=== PATIENT | female | born 2000 | race Caucasian/White ===

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

== ENCOUNTER 2022-02-09 21:52 | Emergency (ER) | payer OTHER, SELFPAY ==
--- NOTE | ~2022-02-09 | US_ITS ---
US OB <=14 wk fetus w TV DATE: 02/10/2022 04:47 INDICATION: Left lower quadrant abdominal pain. Elevated beta hCG. TECHNIQUE: Real-time imaging via transabdominal and transvaginal approaches COMPARISON: None FINDINGS: The uterus measures 9.4 cm height, 7 x 5 cm AP dimension. A normal appearing intrauterine g estational sac is identified. pole and yolk sac are detected. heart rate of 139 bpm. Rector-rump length measures 1.28 cm, consistent with 7 weeks 3 days +/- 5 days estimated gestational a ge; TELMA:. The ovaries appear normal, with vascular flow. Small amount of free fluid in the retrouterine area. IMPRESSION: Early intrauterine gestation, estimated gestational age of 7 weeks 3 days +/- 5 days Reviewed, dictated and finalized at [facility] Reviewed, dictated and finalized at [facility].
[2022-02-09 21:56] VITALS: BP 132/105; PULSE 94; RESP 18; TEMP 36.4; O2SAT 98
[2022-02-09 22:16] LABS: Basophils Absolute Auto 0.1 K/mm3 (0.0-0.1); Basophils Percent Auto 0.6 % (0.2-1.2); Eosinophils Absolute Auto 0.3 K/mm3 (0-0.3); Eosinophils Percent Auto 2.3 % (0-4.4); Hematocrit 33.8 % (37.0-47.0); Hemoglobin 10.2 g/dL (12.0-15.0); Immature Granulocyte Absolute 0.03 K/mm3 (0.00-0.031); Immature Granulocyte Percent A 0.3 % (0-0.5); Lymphocytes Absolute Auto 2.18 K/mm3 (0.9-3.2); Lymphocytes Percent Auto 19.7 % (18.3-44.2); Mean Corpuscular HGB Conc 30.2 g/dl (32-36); Mean Corpuscular Hemoglobin 21.6 pg (26-34); Mean Corpuscular Volume 71.5 fl (80-100); Mean Platelet Volume 10.6 fl (7.4-10.4); Monocytes Absolute Auto 0.8 K/mm3 (0.1-0.6); Monocytes Percent Auto 7.3 % (2.6-8.5); Neutrophils Absolute Auto 7.7 K/mm3 (1.3-6.7); Neutrophils Percent Auto 69.8 % (45.5-73.1); Platelet Count Result 310 k/mm3 (150-375); Red Blood Count 4.73 M/mm3 (4.2-5.4); Red Cell Distribution Width 19.2 % (11.5-14.5); White Blood Count 11.1 K/mm3 (4.5-10.0)
[2022-02-09 22:27] LABS: Alanine Aminotransferase 14 U/L (6-35); Albumin Level 5.4 g/dL (3.7-5.6); Alkaline Phosphatase 46 U/L (45-116); Anion Gap 18 mmol/L (8-16); Aspartate Amino Transferase 19 U/L (14-36); Bilirubin,Total 0.4 mg/dL (0.2-1.3); Blood Urea Nitrogen 5 mg/dL (8-21); Carbon Dioxide 22 mmol/L (22-30); Chloride 100 mmol/L (98-107); Estimated CRCL calculation 91 ml/min; Estimated Glomerular Filt Rate > 60; Glucose 80 mg/dL (65-110); Lipase 54 U/L (23-300); Potassium 3.5 mmol/L (3.4-5.0); Sodium 140 mmol/L (134-143)
[2022-02-09 22:40] LABS: Microcytosis 1+ (NORMAL); Platelet Estimate Adequate (Adequate)
[2022-02-09 22:41] LABS: Hypochromasia 1+ (NORMAL)
[2022-02-10 01:03] VITALS: BP 109/79; O2SAT 100
--- NOTE | 2022-02-10 01:03 | ED.ABDPAIN ---
HPI - Abdominal Pain General Chief Complaint: Abdominal Pain <BEVERLY Amor Last Filed: 02/10/22 04:05> Stated Complaint: abdominal pain <BEVERLY Amor Last Filed: 02/10/22 04:05> Time Seen by Provider: 02/10/22 01:00 <Bobbi Brooks PA-C - Last Filed: 02/10/22 04:05> Source: patient and old records reviewed <BEVERLY Amor Last Filed: 02/10/22 04:05> Mode of arrival: ambulatory <BEVERLY Amor Last Filed: 02/10/22 04:05> Limitations: no limitations <BEVERLY Amor Last Filed: 02/10/22 04:05> History of Present Illness HPI narrative: Patient is a 21-year-old female who presents to the ED with report of lower abdomen and lower back pain. Patient reports having intermittent pain in her lower abdomen and back over the last several months since having her child 6 months ago. Pain is described as sharp and stabbing. Worse over the last week, which prompted her presentation. She has been taking Tylenol at home without much relief. Reports occasional nausea, but denies vomiting, constipation, diarrhea, urinary symptoms, fever, abnormal vaginal bleeding, cough or cold symptoms. Patient reports having positive home test 2 weeks ago. She does note history of retained POC at recent . She had what sounds like a D&C at that time and later became significantly anemic, requiring several blood transfusions. She has since seen Dr. Vidya Silva with [facility]. She she has had positive tests since then and was told it was due to retained placental fragments. <BEVERLY Amor Last Filed: 02/10/22 04:05> Related Data Allergies/Adverse Reactions: Allergies Allergy/AdvReac Type Severity Reaction Status Date / Time No Known Allergies Allergy Unverified 02/28/15 21:53 <BEVERLY Amor Last Filed: 02/10/22 04:05> Review of Systems Review of Systems: CONSTITUTIONAL: Denies fever, chills, or sweats. ENT: Denies rhinorrhea, congestion, sore throat. CARDIOVASCULAR: Denies chest pain. RESPIRATORY: Denies cough or dyspnea. GASTROINTESTINAL: Reports lower abdominal pain, nausea. Denies vomiting, constipation, or diarrhea. GENITOURINARY: Denies AUB, dysuria, or hematuria. MUSCULOSKELETAL: Reports lower back pain. <Bobbi Brooks PA-C - Last Filed: 02/10/22 04:05> All systems reviewed & are unremarkable except as noted in HPI and below <Bobbi Brooks PA-C - Last Filed: 02/10/22 04:05> [facility] Past Medical History Medical History: Medical History (Updated 02/10/22 @ 06:11 by Venancio Singer MD) History of blood transfusion No pertinent past medical history <Bobbi Brooks PA-C - Last Filed: 02/10/22 04:05> Surgical History Surgical History: Surgical History (Updated 02/10/22 @ 01:17 by Bobbi Brooks PA-C) History of D&C <Bobbi Brooks PA-C - Last Filed: 02/10/22 04:05> Social History Social History: Social History (Updated 02/10/22 @ 01:17 by Bobbi Brooks PA-C) Smoking status: Current every day smoker <Bobbi Brooks PA-C - Last Filed: 02/10/22 04:05> Exam Narrative: GENERAL: Well appearing, thin, non-toxic, in no acute distress. HEAD: Normocephalic, atraumatic. NECK: Supple. No adenopathy, no masses. RESPIRATORY: Airway patent, respirations nonlabored. Clear to auscultation bilaterally, no rales, rhonchi, wheezing. CARDIOVASCULAR: Regular rate and rhythm without murmurs, rubs, or gallops. Peripheral pulses 2+ and equal bilaterally. ABDOMINAL: Soft, mild tenderness to palpation in left lower quadrant, epigastric region. Nondistended, no hepatosplenomegaly. Normoactive BS. MUSCULOSKELETAL: Moves all extremities. Strength/ROM intact without gross deformities. TTP in lumbar region bilaterally. No midline spinal tenderness. SKIN: Warm, dry, normal color. No rashes. NEURO: A&O X3. Speech clear. Crani
[2022-02-10 01:23] LABS: Appearance Urine Clear (Clear); Bilirubin Urine Negative (Negative); Blood Urine Negative (Negative); Color Urine Yellow (Yellow); Glucose Urine UA Negative (Negative); Ketones Urine Negative (Negative); Leukocyte Esterase Ur Trace LEU/UL (Negative); Nitrate Urine Negative (Negative); Protein Urine Negative (Negative); Urobilinogen Urine 0.2 mg/dL (<2.0)
[2022-02-10 01:26] LABS: Add Urine Microscopic? YES; Bacteria Urine Trace /hpf; Mucus Urine Rare /lpf; RBC Urine 0-2 /hpf (0-2); Squamous Epithelial Cell Urine Rare /hpf (Few)
[2022-02-10 02:09] VITALS: BP 110/68; PULSE 68; RESP 16; TEMP 36.3; O2SAT 100
[2022-02-10] MEDS: SODIUM CHLORIDE 0.9% IV 1,000 ML 999 ML IV CONT (02:10)
--- NOTE | 2022-02-10 03:40 | PC.NURSE ---
Pt in is US at this time
--- NOTE | 2022-02-10 04:19 | PC.NURSE ---
pt in US at this time
[2022-02-10 04:40] VITALS: BP 97/54; PULSE 57; RESP 18; O2SAT 100
[2022-02-10 05:59] VITALS: BP 79/47; PULSE 60; RESP 18; O2SAT 100
== END 2022-02-10 06:30 | disposition home or self-care (01) ==
PROVIDERS: Emergency Medicine; Physician Assistant; Emergency Provider Emergency Medicine; PCP Family Medicine
DX: O26.891 Other specified pregnancy related conditions, first trimester (principal); R10.30 Lower abdominal pain, unspecified; Z3A.01 Less than 8 weeks gestation of pregnancy
CPT/HCPCS: 36415; 76801; 76817; 80053; 81001; 81025; 83690; 84702; 85025; 87086; 96374; 99284; J0131; J7030

== ENCOUNTER 2022-12-01 15:36 | Emergency (ER) | payer OTHER, SELFPAY ==
--- NOTE | ~2022-12-01 | US_ITS ---
EXAMINATION: US OB follow up DATE: 12/01/2022 19:08 INDICATION: One week of pelvic and back pain during early second trimester TECHNIQUE: Real-time ultrasound of the pelvis was performed. The interpreting radiologist was not pre sent for the study. COMPARISON: None. FINDINGS: There is a single living fetus in breech presentation. The placenta is anterior. heart rate is 146 beats per minute (bpm). The amniotic fluid volume is subjectively normal. The following biometric data were obtained: BPD: 8.7 cm -> 14 weeks 6 days Head circumference: 10.5 cm -> 15 weeks 0 days Abdominal circumference: 9.0 cm -> 15 weeks 1 days Femur length: 1.5 cm -> 14 weeks 2 days These measurements are concordant. Head circumference to abdominal circumference ratio: 1.18 (normal range 1.06-1.38). Estimated weight: 106 g (+/-) 16 g or 4 oz. (+/-) <1 oz. IMPRESSION: 1. Single living fetus in breech presentation with heart rate of 146 bpm. 2. Gestational age by ultrasound of 14 weeks 6 day(s) +/- 1 week(s) 0 day(s) with ultrasound estimate d date of delivery (TELMA) of 05/26/2023. Estimated weight is 71st percentile by Hadlock criteria when 05/30/2023 is used as the TELMA. Please correlate with clinical information or earlier ultrasound s for most accurate TELMA. Reviewed, dictated and finalized at [facility]. IMPRESSION: 1. Single living fetus in breech presentation with heart rate of 146 bpm. 2. Gestational age by ultrasound of 14 weeks 6 day(s) +/- 1 week(s) 0 day(s) wi th ultrasound estimated date of delivery (TELMA) of 05/26/2023. Estimated w eight is 71st percentile by Hadlock criteria when 05/30/2023 is used as the TELMA . Please correlate with clinical information or earlier ultrasounds for most ac curate TELMA.
[2022-12-01 15:39] VITALS: BP 121/66; PULSE 100; RESP 17; TEMP 36.9; O2SAT 100
[2022-12-01 16:51] LABS: Basophils Percent Auto 0.3 % (0.2-1.2); Eosinophils Absolute Auto 0.1 K/mm3 (0-0.3); Eosinophils Percent Auto 0.8 % (0-4.4); Hemoglobin 9.1 g/dL (12.0-15.0); Immature Granulocyte Absolute 0.04 K/mm3 (0.00-0.031); Immature Granulocyte Percent A 0.3 % (0-0.5); Lymphocytes Absolute Auto 1.75 K/mm3 (0.9-3.2); Lymphocytes Percent Auto 14.8 % (18.3-44.2); Mean Corpuscular HGB Conc 30.3 g/dl (32-36); Mean Corpuscular Volume 79.2 fl (80-100); Mean Platelet Volume 10.4 fl (7.4-10.4); Monocytes Absolute Auto 0.7 K/mm3 (0.1-0.6); Monocytes Percent Auto 6.2 % (2.6-8.5); Neutrophils Absolute Auto 9.2 K/mm3 (1.3-6.7); Neutrophils Percent Auto 77.6 % (45.5-73.1); Platelet Count Result 234 k/mm3 (150-375); Red Blood Count 3.79 M/mm3 (4.2-5.4); Red Cell Distribution Width 17.4 % (11.5-14.5); White Blood Count 11.9 K/mm3 (4.5-10.0)
[2022-12-01 17:03] LABS: Alanine Aminotransferase 13 U/L (6-35); Alkaline Phosphatase 49 U/L (38-126); Anion Gap 7 mmol/L (8-16); Aspartate Amino Transferase 20 U/L (14-36); Bilirubin,Total 0.3 mg/dL (0.2-1.3); Blood Urea Nitrogen 7 mg/dL (7-17); Calcium 8.4 mg/dL (8.4-10.2); Carbon Dioxide 26 mmol/L (22-30); Chloride 102 mmol/L (98-107); Estimated Glomerular Filt Rate > 60; Glucose 86 mg/dL (65-110); Lipase 62 U/L (23-300); Potassium 3.5 mmol/L (3.4-5.0); Sodium 135 mmol/L (137-145)
[2022-12-01 17:13] LABS: Appearance Urine Clear (Clear); Bacteria Urine None Seen /hpf; Bilirubin Urine Negative (Negative); Blood Urine Negative (Negative); Color Urine Yellow (Yellow); Glucose Urine UA Negative (Negative); Ketones Urine Negative (Negative); Leukocyte Esterase Ur Trace LEU/UL (Negative); Nitrate Urine Negative (Negative); Non Pathogenic Casts 0-2; Protein Urine Negative (Negative); RBC Urine 0-2 /hpf (0-2); Specific Grav Ur 1.019 (1.001-1.035); Squamous Epithelial Cell Urine Few /hpf (Few); Urobilinogen Urine 0.2 mg/dL (<2.0)
[2022-12-01 17:23] LABS: Add Urine Microscopic? YES
--- NOTE | 2022-12-01 17:37 | PC.NURSE ---
[employer] called in
--- NOTE | 2022-12-01 17:41 | ED.ABDPAIN ---
HPI - Abdominal Pain General Chief Complaint: Abdominal Pain <Carmen Urbina PA-C - Last Filed: 12/01/22 20:58> Stated Complaint: lower back/abd pain - 14 weeks - no bleed <Carmen Urbina PA-C - Last Filed: 12/01/22 20:58> Time Seen by Provider: 12/01/22 17:16 <BEVERLY Fallon Last Filed: 12/01/22 20:58> Source: patient <BEVERLY Fallon Last Filed: 12/01/22 20:58> Mode of arrival: ambulatory <BEVERLY Fallon Last Filed: 12/01/22 20:58> Limitations: no limitations <BEVERLY Fallon Last Filed: 12/01/22 20:58> History of Present Illness HPI narrative: This is a 22-year-old , about 14 weeks , that presents to the emergency department for pelvic pain ongoing over the last week. Reports the pain is sharp and constant. Reports it feels like labor pains. She also experiences this pain in her lower back. She has had some nausea and vomiting. Reports her OB is Dr. Silva. She has not tried to take anything for pain. Denies fevers, dysuria, hematuria, or vaginal bleeding. <Carmen Urbina PA-C - Last Filed: 12/01/22 20:58> Related Data Allergies/Adverse Reactions: Allergies Allergy/AdvReac Type Severity Reaction Status Date / Time No Known Allergies Allergy Unverified 12/01/22 15:37 <Carmen Urbina PA-C - Last Filed: 12/01/22 20:58> Review of Systems Review of Systems: CONSTITUTIONAL: Denies fever GASTROINTESTINAL: Reports abdominal pain, nausea, vomiting. Denies diarrhea. GENITOURINARY: Denies dysuria or hematuria. MUSCULOSKELETAL: Reports back pain <BEVERLY Fallon Last Filed: 12/01/22 20:58> All systems reviewed & are unremarkable except as noted in HPI and below <BEVERLY Fallon Last Filed: 12/01/22 20:58> PMFSH Past Medical History Medical History: Medical History (Updated 12/02/22 @ 00:00 by Tianna Marilynn) History of anemia History of blood transfusion <Carmen Urbina PA-C - Last Filed: 12/01/22 20:58> Surgical History Surgical History: Surgical History (Updated 02/10/22 @ 01:17 by Bobbi Brooks PA-C) History of D&C <Carmen Urbina PA-C - Last Filed: 12/01/22 20:58> Social History Social History: Social History (Updated 12/01/22 @ 17:44 by Carmen Urbina PA-C) Smoking status: Current every day smoker Tobacco type: e-cigarettes/vaping Substance use: current Substance use type: marijuana <Carmen Urbina PA-C - Last Filed: 12/01/22 20:58> Exam Narrative: GENERAL: Well-appearing, well-nourished, and in no acute distress. HEAD: Normocephalic, atraumatic. EYES: EOMI. ENT: Mucous membranes moist. Oropharynx without tonsillar hypertrophy exudate or other lesions. CHEST: Clear to auscultation. No respiratory distress. No wheezes rales or rhonchi HEART: Regular rate and rhythm. No murmur heard. Normal peripheral pulses. ABDOMEN: Soft, nontender, nondistended, normal active bowel sounds. EXTREMITIES: Normal range of motion. No edema. SKIN: Warm, dry, no rash. NEURO: No focal deficits. Alert and oriented x3. PSYCH: Normal mood and affect <Carmen Urbina PA-C - Last Filed: 12/01/22 20:58> Course Course Emergency Course: Patient and family updated on work-up. Patient is resting comfortably and agrees with plan of care <Carmen Urbina PA-C - Last Filed: 12/01/22 20:58> GROUND INSTRUCTOR BASIC/PA Physician Supervision This is a was performed by both a physician and an APC. I performed all aspects of the MDM as documented w/ the following additions: 22-year-old 14 weeks gestation presenting with pelvic cramping in . Ultrasound showed a live intrauterine breech position. Patient be discharged with return precautions. All questions answered. Patient in agreement w/ disposition. <Mikael Rodriguez MD - Last Filed: 12/03/22 19:56> Vital Signs Vital signs: Vital Signs Temperature 98.4 F 12/01/22 15:39 Pulse R
[2022-12-01] MEDS: ONDANSETRON INJ 4 MG/2 ML VIAL IV PUSH (18:16)
[2022-12-01] MEDS: SODIUM CHLORIDE 0.9% IV 500 ML 999 ML IV CONT (18:16)
[2022-12-01 19:10] VITALS: BP 114/71; PULSE 92; RESP 18; O2SAT 99
[2022-12-01] MEDS: ACETAMINOPHEN 500 MG TABLET 1000 MG PO (20:07)
[2022-12-01 21:00] VITALS: BP 105/71; PULSE 68; RESP 16; O2SAT 99
== END 2022-12-01 21:14 | disposition home or self-care (01) ==
PROVIDERS: Emergency Medicine; Emergency Provider Physician Assistant; PCP Family Medicine
DX: O26.892 Other specified pregnancy related conditions, second trimester (principal); R10.2 Pelvic and perineal pain; O99.012 Anemia complicating pregnancy, second trimester; D64.9 Anemia, unspecified; O99.332 Smoking (tobacco) complicating pregnancy, second trimester; F17.290 Nicotine dependence, other tobacco product, uncomplicated; Z3A.14 14 weeks gestation of pregnancy
CPT/HCPCS: 36415; 76816; 80053; 81001; 83690; 84702; 85025; 87086; 87088; 96361; 96374; 99284; A9270; J2405; J7040

== ENCOUNTER 2023-03-27 14:25 | Outpatient (CLI) | payer OTHER, SELFPAY ==
[2023-03-27] VITALS (19 sets, daily range): BP systolic 93–115; BP diastolic 42–64; PULSE 58–143; O2SAT 90–100
[2023-03-27] MEDS: IRON SUCROSE COMPLEX 200 MG in SODIUM CHLORIDE 0.9% IV 50 ML 240 MG IVPB (15:47)
== END 2023-03-27 17:35 | disposition home or self-care (01) ==
LOC: ANHOBOP 14:35 → ANHOBPP 14:35
PROVIDERS: Visit Provider Obstetrics & Gynecology Gynecology
DX: Z34.90 Encounter for supervision of normal pregnancy, unspecified, unspecified trimester (principal); Z3A.00 Weeks of gestation of pregnancy not specified
CPT/HCPCS: 59025; 99199; 99213; G0463; J1756

== ENCOUNTER 2023-05-15 02:29 | Inpatient (IN) | payer OTHER, SELFPAY ==
[2023-05-15] VITALS (37 sets, daily range): BP systolic 95–125; BP diastolic 50–74; PULSE 50–103; RESP 16–20; TEMP 36.7–37.2; O2SAT 90–100; BMI 23.1
--- OUTSIDE RECORDS SUMMARY | 2023-05-15 03:07 | XMS_ITS | Patient Health Record ---
Author Name Unknown Organization [facility] Address [address] [place] [address] Care Team Providers Care Saddle Stitcher Name Role Phone Deanna Carrasco Primary Care Provider Unavailab Bob Cabral Unavailable [phone] REASON FOR REFERRAL No Information MEDICATIONS Medication SIG (Take, Route, Frequency, Duration) Notes Start Date End Date Status Nasal Allergy 24 Hour 55 mcg/inh 2 spray(s) intranasally once a day for 30 day(s) 01/20/2020 Active Nasal Washes N/A as directed intranas ally as needed for 30 01/20/2020 Active ProAir HFA 90 mcg/inh 2 puff(s) inhaled every 6 hours for 30 day(s) Active Levocetirizine Dihydrochloride 5 mg 1 tab(s) orally once a day (in the evening) for 30 day(s) 01/20/2020 Active SOCIAL HISTORY Tobacco Use: Social History Observation Description Date Details (start date - stop date) Never Smoker NA - NA Sex Assigned At : Social History Observation Description Sex Assigned At Unknown Smoking Smart Form: Question Answer Notes Are you a: never smoker PROBLEMS Problem Type ICD Code Onset Dates Problem Status W/U Status Risk SNOMED Code Notes Problem Chronic rhinitis (J31.0)
[2023-05-15 03:17] LABS: Basophils Percent Auto 0.3 % (0.2-1.2); Eosinophils Absolute Auto 0.1 K/mm3 (0-0.3); Eosinophils Percent Auto 0.9 % (0-4.4); Hematocrit 33.2 % (37.0-47.0); Hemoglobin 10.5 g/dL (12.0-15.0); Immature Granulocyte Absolute 0.11 K/mm3 (0.00-0.031); Immature Granulocyte Percent A 0.7 % (0-0.5); Lymphocytes Absolute Auto 2.43 K/mm3 (0.9-3.2); Lymphocytes Percent Auto 15.7 % (18.3-44.2); Mean Corpuscular HGB Conc 31.6 g/dl (32-36); Mean Corpuscular Hemoglobin 27.7 pg (26-34); Mean Corpuscular Volume 87.6 fl (80-100); Mean Platelet Volume 10.5 fl (7.4-10.4); Monocytes Absolute Auto 1.1 K/mm3 (0.1-0.6); Neutrophils Absolute Auto 11.7 K/mm3 (1.3-6.7); Neutrophils Percent Auto 75.4 % (45.5-73.1); Platelet Count Result 204 k/mm3 (150-375); Red Blood Count 3.79 M/mm3 (4.2-5.4); White Blood Count 15.5 K/mm3 (4.5-10.0)
[2023-05-15] MEDS: LACTATED RINGERS 1,000 ML 125 ML IV CONT (03:30)
--- NOTE | 2023-05-15 03:31 | LDADM ---
This patient, Rosemary Morenosihawk, was admitted to Labor/Delivery/Recovery 105 on 05/15/23 at 02:29. Plans for labor, pain management and were discussed with patient. Patient/family oriented to hospital policies and general routines including ID bracelet, bed and alarms, visiting hours, pain management, procedures, bathroom and other care routines, personal items, smoking policy, room service/diet and guest tray routines, infant security routines, and visiting hours. Patient/Family are encouraged to report perceived risks to care and to ask questions if they do not understand what they are told or what they should do. See OBIX for further documentation.
[2023-05-15 04:02] LABS: Anisocytosis 1+ (NORMAL); Platelet Estimate Adequate (Adequate); Poikilocytosis 1+ (NORMAL); Schistocytes None Seen (NORMAL)
--- NOTE | 2023-05-15 04:11 | WPDANESEPP ---
Anes - Eval Pre Procedure Procedure: labor epidural Date/Time: 05/15/23 04:11 Pre Op Diagnosis: Contractions Patient Data Age: 22 Gender: F Height: 1.52 m Weight: 53.6 kg Last Vital Signs Pulse 86 05/15/23 04:01 BP 118/68 05/15/23 04:01 Pulse Ox 98 05/15/23 04:10 O2 Del Method Room Air 05/15/23 03:22 Allergies Allergy/AdvReac Type Severity Reaction Status Date / Time No Known Allergies Allergy Verified 05/08/23 14:47 Home Medications Medication Instructions Recorded Confirmed Type ferrous sulfate 325 mg (65 mg 325 mg PO DAILY 05/04/23 05/08/23 History iron) capsule,extended release Laboratory Tests 05/15/23 03:11 WBC 15.5 H K/mm3 (4.5-10.0) RBC 3.79 L M/mm3 (4.2-5.4) Hgb 10.5 L g/dL (12.0-15.0) Hct 33.2 L % (37.0-47.0) MCV 87.6 fl (80-100) MCH 27.7 pg (26-34) MCHC 31.6 L g/dl (32-36) RDW TNP Plt Count 204 k/mm3 (150-375) MPV 10.5 H fl (7.4-10.4) Immature Gran % (Auto) 0.7 H % (0-0.5) Neut % (Auto) 75.4 H % (45.5-73.1) Lymph % (Auto) 15.7 L % (18.3-44.2) [place] % (Auto) 7.0 % (2.6-8.5) Eos % (Auto) 0.9 % (0-4.4) Baso % (Auto) 0.3 % (0.2-1.2) Lymph # (Auto) 2.43 K/mm3 (0.9-3.2) [place] # (Auto) 1.1 H K/mm3 (0.1-0.6) Eos # (Auto) 0.1 K/mm3 (0-0.3) Baso # (Auto) 0.0 K/mm3 (0.0-0.1) Abs Immat Gran (auto) 0.11 H K/mm3 (0.00-0.031) Absolute Neuts (auto) 11.7 H K/mm3 (1.3-6.7) Absolute Nucleated RBC 0.0 K/mm3 (0.0-0.012) Nucleated RBC % 0.0 % (0.0-0.2) Platelet Estimate Adequate (Adequate) Poikilocytosis 1+ (NORMAL) Anisocytosis 1+ (NORMAL) Schistocytes None seen (NORMAL) RPR Pending Blood Type B Positive Antibody Screen Negative Patient hx anesthesia problems: none Family hx anesthesia problems: none Results Review: All pre-operative results and documents have been reviewed as part of the pre-operative evaluation. [facility] Past Medical History Medical History History of anemia History of blood transfusion Family History Family History Grandparent Diabetes mellitus Pancreatic cancer Social History Social History Smoking status: Current every day smoker Smokeless tobacco user: other Alcohol intake: former Substance use: never Substance use type: marijuana Lack of Transportation: YES Lack of Food: Never True Current Housing: I Have Housing Concerned About Future Housing: No Difficulty Paying Gas/Electric Bills: No Difficulty Paying for Meds: No Currently Unemployed: No Education: Associate Degree Difficulty w/ Childcare or Family Care: No Living arrangements: with family Occupation/Education: unemployed Gender identity (if verbalized by the patient): Female Spiritual care concerns: No Exam Day of Procedure 05/15/23 04:11 Patient weight: normal Heart: regular rate and rhythm Lungs: normal air movement Airway: Mallampati scale Neurological: alert and oriented
[2023-05-15] MEDS: OXYTOCIN 30 UNITS/NS 500 ML 30 UNITS/500 ML BAG 999 UNITS IV CONT (04:50)
--- NOTE | 2023-05-15 04:58 | WPDHPUPDATE1 ---
History and Physical Update Update Date/Time: 05/15/23 04:58 History and Physical has been reviewed, including an updated exam of the patient. There are NO changes in the patient's condition. Risks, benefits, and alternatives have been discussed and questions answered. Patient agrees to proceed with procedure.
--- NOTE | 2023-05-15 04:58 | WPDOBADMIT ---
Obstetrics - Admit Note Admission Note: record reviewed. No pertinent additions to the history and/or any subsequent changes in the physical findings that are not consistent with the expected course of the were found. Additions to the history and/or subsequent changes in the physical findings follow. None.
--- NOTE | 2023-05-15 04:59 | PM.OBPRVD ---
OB - Vaginal Delivery Note Procedure Delivery date: 05/15/23 Induction method: None Delivery augmentation: Rupture of Membranes Delivery monitor: External FHT and External Uterine Route of delivery: Episiotomy description: None Laceration Description: Periurethral Specimen: No Quantitative Blood Loss (ml): 400 Anesthesia type: None Disposition: Floor Complications: No immediate complications Narrative: Patient prepped and draped in the usual manner for this procedure. Maternal expulsive efforts readily delivered vertex in occiput posterior position, rest of baby delivered without difficulty. Cord was clamped and cut. Placenta delivered spontaneously and intact. Uterus well contracted. Cervix vagina vulvar were evaluated with small periurethral laceration noted which was not bleeding. At this point the procedure was considered terminated with immediate postoperative condition of mother and baby both excellent. [place] Baby Weeks of gestation at delivery: 37 Infant gender: Male presentation: vertex position: Right Occiput Posterior Placenta delivery description: Spontaneous Cord Vessel Description: 3 Vessels [facility]G Delivery Billing Delivery Delivery: Delivery Charge
[2023-05-15] MEDS: IBUPROFEN 600 MG TABLET PO ×2 (05:10→11:57)
[2023-05-15] MEDS: OXYTOCIN 30 UNITS/NS 500 ML 30 UNITS/500 ML BAG 125 UNITS IV CONT (05:23)
[2023-05-15] MEDS: METHYLERGONOVINE MALEATE 0.2 MG/ML VIAL IM (07:05)
--- NOTE | 2023-05-15 07:30 | PC.NURSE ---
Patient transferred to post room #281 via wheelchair. Support person present. Oriented to unit, room, information board, rooming in, admission packet and security measures. Patient verbalizes understanding.
[2023-05-15] MEDS: ACETAMINOPHEN 325 MG TABLET 650 MG PO ×3 (08:04→23:15)
[2023-05-15] MEDS: POLYSACCHARIDE IRON COMPLEX 150 MG CAPSULE PO ×2 (08:04→16:04)
[2023-05-15] MEDS: DOCUSATE SODIUM 100 MG CAPSULE PO ×2 (08:05→16:04)
[2023-05-15] MEDS: ONDANSETRON INJ 4 MG/2 ML VIAL IV PUSH (08:24)
[2023-05-15 14:39] LABS: Rapid Plasma Reagin Non-Reactive (NonReactive)
[2023-05-16 05:20] LABS: Hematocrit 28.7 % (37.0-47.0)
[2023-05-16 07:20] VITALS: BP 96/55; PULSE 67; RESP 16; TEMP 36.6; O2SAT 100
[2023-05-16] MEDS: ACETAMINOPHEN 325 MG TABLET 650 MG PO (08:32)
[2023-05-16] MEDS: POLYSACCHARIDE IRON COMPLEX 150 MG CAPSULE PO (08:32)
[2023-05-16] MEDS: DOCUSATE SODIUM 100 MG CAPSULE PO (08:33)
--- NOTE | 2023-05-16 10:05 | PM.OBDSVD ---
DS: Admitting Diagnosis Discharge Date 05/16/2023 Admitting Diagnosis DS: Discharge Diagnosis Discharge Diagnosis (1) , delivered: Code(s): O80 - Encounter for full-term uncomplicated delivery Status: Acute OB - DS: Summary OB Procedures : None OB Procedures Intrapartum: Spontaneous Vag Delivery OB Procedures: : None Peripartum Data Laceration Description: Periurethral Episiotomy description: None Time Spent with Patient Time attestation: Total time spent providing and/or coordinating discharge services: DS: Data Data Completed and Pending Labs on day of discharge: Labs from last 24 hours 05/16/23 05/15/23 04:11 03:11 Hgb 9.0 L Hct 28.7 L RPR Non-reactive Discharge Plan Discharge Discharging Clinician: Edilberto Yates Patient Disposition: Home, Self-Care Activity: as tolerated Diet: as tolerated Patient Instructions: Antibiotic Form Stand Alone Forms: General Discharge Information Follow-up/Referrals: Shay Templeton MD [Physician] - 3 Weeks Discharge Medications: New ibuprofen 600 mg Tablet 600 mg PO Q6H PRN (Reason: Cramping) Qty: 30 0RF Continued ferrous sulfate 325 mg (65 mg iron) Capsule, Extended Release 325 mg PO DAILY Date of admission: 05/15/23 02:29 Primary Care Provider: PHYSICIAN,SPEEDER [employer]AME TENDER Admitting Provider: Shay Templeton Attending physician on admission: Shay Templeton Condition: Stable
--- NOTE | 2023-05-16 10:47 | PC.NURSE ---
Patient was given the opportunity to view the discharge video Mother & Baby Care, The First Two Weeks and to ask questions. Patient declined viewing the video and has been given the mother/baby guide for home reference.
[2023-05-16] MEDS: TETANUS,DIPHTHERIA,AC PERTUSSIS ADULT (0.5 ML) BOOSTRIX IM (11:33)
[2023-05-17 10:16] VITALS: BP 89/51; PULSE 90; RESP 18; TEMP 36.7; O2SAT 100
== END 2023-05-16 12:20 | disposition home or self-care (01) | DRG 560 ==
LOC: ANHLDR 03:13 → ANHOB2 05-16 09:21 → ANHLDR 05-17 08:45 → ANHOB2 05-17 08:45
PROVIDERS: Admitting Provider Obstetrics & Gynecology; Visit Provider Obstetrics & Gynecology
DX: O62.3 Precipitate labor (principal); O71.82 Other specified trauma to perineum and vulva; Z3A.37 37 weeks gestation of pregnancy; Z37.0 Single live birth
CPT/HCPCS: 36415; 85014; 85018; 85025; 86592; 86850; 86900; 86901; 90715; A9270; J2210; J2405; J2590; J2795; J7120

== ENCOUNTER 2023-06-11 10:17 | Outpatient (CLI) | payer OTHER, SELFPAY ==
[2023-06-11 10:57] LABS: Beta HCG Quantitative < 2.39 mIU/ML
== END 2023-06-11 10:18 | disposition home or self-care (01) ==
LOC: ANHLAB 10:18
PROVIDERS: Visit Provider Student in an Organized Health Care Education/Training Program
DX: Z30.431 Encounter for routine checking of intrauterine contraceptive device (principal)
CPT/HCPCS: 36415; 84702; J2704